=== PATIENT | female | born 1970 | race American Indian/Alaskan Native ===

== ENCOUNTER 2016-10-08 19:16 | Emergency (ER) | payer SELFPAY ==
[2016-10-08 20:03] VITALS: BP 164/98
== END 2016-10-09 00:10 | disposition left against medical advice (07) ==
LOC: ED 19:16
DX: M54.5 Low back pain (principal); R09.81 Nasal congestion; Z53.21 Procedure and treatment not carried out due to patient leaving prior to being seen by health care provider

== ENCOUNTER 2016-10-14 12:43 | Emergency (ER) | payer OTHER ==
[2016-10-14 12:53] VITALS: BP 177/99
[2016-10-14] MEDS ORDERED: MOTRIN PO ONE (16:54)
[2016-10-14] MEDS ORDERED: ROBITUSSIN DM PO ONE (16:54)
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
[2016-10-14] MEDS ORDERED: FLEXERIL PO ONE (16:55)
== END 2016-10-14 17:29 | disposition home or self-care (01) ==
LOC: ED 12:43
DX: J06.9 Acute upper respiratory infection, unspecified (principal); M79.1 Myalgia; M54.9 Dorsalgia, unspecified; I10 Essential (primary) hypertension; V43.52XA Car driver injured in collision with other type car in traffic accident, initial encounter; Y93.9 Activity, unspecified; Y99.9 Unspecified external cause status; Y92.410 Unspecified street and highway as the place of occurrence of the external cause
CPT/HCPCS: 99282

== ENCOUNTER 2021-03-09 22:20 | Emergency (ER) | payer SELFPAY ==
[2021-03-10] MEDS ORDERED: ACETAMINOPHEN 325 MG TAB PO ONE (00:09)
[2021-03-10] MEDS ORDERED: KETOROLAC 60 MG/2 ML INJ IM ONE (00:47)
[2021-03-10] MEDS ORDERED: HYDROcodone/ACETAMINOPHEN 10-325MG TAB PO ONE (00:47)
--- NOTE | 2021-03-10 03:50 | XRay Report ---
Lumbar spine 2 views INDICATION: Pain FINDINGS: Alignment appears normal. No compression fractures seen. Sacrum and sacroiliac joints appea r normal. Cervical spine INDICATION: Neck pain FINDINGS: Straightening of normal cervical spine curvature. No prevertebral soft tissue swelling. Odo ntoid appears intact. IMPRESSION: No acute findings. Signer Name: Austin Lott MD Signed: 03/10/2021 3:45 AM Workstation Name: [id number]
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
[2021-03-10 05:22] VITALS: BP 166/85
== END 2021-03-10 04:20 | disposition home or self-care (01) ==
LOC: ED 22:20
DX: S13.4XXA Sprain of ligaments of cervical spine, initial encounter (principal); S39.012A Strain of muscle, fascia and tendon of lower back, initial encounter; I10 Essential (primary) hypertension; E66.01 Morbid (severe) obesity due to excess calories; Z98.51 Tubal ligation status; Z68.44 Body mass index [BMI] 60.0-69.9, adult; Z79.899 Other long term (current) drug therapy; V49.49XA Driver injured in collision with other motor vehicles in traffic accident, initial encounter; Y92.410 Unspecified street and highway as the place of occurrence of the external cause; Y93.89 Activity, other specified; Y99.8 Other external cause status
CPT/HCPCS: 72040; 72100; 96372; 99283; J1885